=== PATIENT | female | born 1935 | race American Indian/Alaskan Native ===

== ENCOUNTER 2016-07-08 14:39 | Outpatient (CLI) | payer MEDICARE, OTHER | END 2016-07-08 14:40 | disposition home or self-care (01) | LOC: LABHHL 14:39 | PROVIDERS: ATTEND Internal Medicine Gastroenterology | DX: R10.11 Right upper quadrant pain (principal); R93.5 Abnormal findings on diagnostic imaging of other abdominal regions, including retroperitoneum | CPT/HCPCS: 88305; 88342 ==